=== PATIENT | female | born 1995 | race Caucasian/White ===

== ENCOUNTER 2020-05-20 22:52 | Emergency (ER) | payer OTHER, SELFPAY ==
[2020-05-20 23:08] VITALS: BP 163/97; PULSE 96; RESP 20; TEMP 37.3; O2SAT 98
--- NOTE | 2020-05-20 23:12 | ED.WOUNDLAC ---
HPI - Wound/Laceration General Chief Complaint: Wound/Laceration Stated Complaint: possible bit by spider on stomach Time Seen by Provider: 05/20/20 23:12 Source: patient Mode of arrival: ambulatory Limitations: no limitations History of Present Illness HPI narrative: 25-year-old woman was previously well comes in today complaining of a painful lesion on her left abdomen that has been present for last 2 days. She states this started as a pimple and she tried to squeeze it. Since then it has become red and more painful. She denies any fever, nausea, vomiting, and . Onset (ago): day(s) (2) Location: abdomen Related Data Allergies Allergy/AdvReac Type Severity Reaction Status Date / Time LAVENDER Allergy Uncoded 04/01/19 10:25 Review of Systems Constitutional: Constitutional: Denies chills and Denies fever(s) Respiratory: Respiratory: Denies cough and Denies dyspnea Gastrointestinal: Gastrointestinal: Denies abdominal pain, Denies nausea and Denies vomiting Genitourinary: Genitourinary: Denies nocturia and Denies dysuria Neurologic: Denies vertigo and Denies syncope Hematologic/Lymphatic: Hematologic/Lymphatic: Denies easy bleeding and Denies easy bruising Allergic/Immunologic: Allergic/Immunologic: Denies lip swelling and Denies throat swelling [facility] Surgical History Surgical History History of mandibular surgery Hx of tonsillectomy Social History Social History Smoking status: Never smoker Alcohol intake: never Substance use: never Living arrangements: with family Exam Const: General: no acute distress Nutritional Appearance: obese Orientation/consciousness: patient oriented x3 Limitations: no limitations Eyes: Conjunctivae: conjunctivae normal Pupils: Equal, round and reactive pupils present EOM: EOMs intact bilaterally Resp: Effort & Inspection: normal respiratory effort and not labored Auscultation: clear to auscultation bilaterally, no rales, no rhonchi and no wheezes Cardio: Rate: regular rate Rhythm: regular rhythm Heart sounds: no murmurs GI: GI Palp: Yes Soft to palpation and No Tenderness to palpation present (GI) Auscultation: normal bowel sounds Skin: General skin exam: normal color, no jaundice and no pallor Rashes: no rashes Other: 1.5 x 2 cm area of erythema and induration on the left abdomen with a small punctum. There is erythema around it but no purulent drainage or fluctuance. Neuro: General: patient oriented x3, moves all extremities, no focal motor deficits and CN's II-XI intact bilaterally Speech: normal speech Gait exam (Neuro): Normal gait present Extrem: General: normal to inspection and no clubbing, cyanosis or edema Psych: Appearance: grossly normal and well kempt Mental Status: mental status grossly normal Affect: normal affect Attitude: cooperative Thought content: Yes Normal thought content present Course Vital Signs Vital signs: Vital Signs Temperature 37.3 C 05/20/20 23:08 Pulse Rate 96 05/20/20 23:08 Respiratory Rate 20 05/20/20 23:08 Blood Pressure 163/97 H 05/20/20 23:08 Pulse Oximetry 98 05/20/20 23:08 Temperature 37.3 C 05/20/20 23:08 Pulse Rate 96 05/20/20 23:08 Respiratory Rate 20 05/20/20 23:08 Blood Pressure 163/97 H 05/20/20 23:08 Pulse Oximetry 98 05/20/20 23:08 Discharge Plan Discharge Clinical Impression: Abscess Patient Disposition: Home, Self-Care Condition: Stable Instructions: Antibiotic Form, Abscess (ED) Additional Instructions: Do not squeeze or poke the wound in order to make it drain. Warm compresses. If he develops fever, vomiting, or rapidly spreading redness or new concerning symptoms return to the emergency department. Follow-up with your doctor next week. Prescriptions: New sulfamethoxazole-trimethoprim [Bactrim DS] 800-160 m
[2020-05-20 23:24] VITALS: BP 141/90; PULSE 100; RESP 20; O2SAT 98
== END 2020-05-20 23:30 | disposition home or self-care (01) ==
PROVIDERS: Emergency Provider Emergency Medicine; PCP Internal Medicine
DX: L02.211 Cutaneous abscess of abdominal wall (principal)
CPT/HCPCS: 99283; A9270

== ENCOUNTER 2021-11-29 14:38 | Emergency (ER) | payer OTHER, SELFPAY ==
[2021-11-29 14:45] VITALS: BP 137/76; PULSE 94; RESP 14; TEMP 36.6; O2SAT 100
--- NOTE | 2021-11-29 15:04 | ED.SKABFB ---
HPI - Skin/Abscess/Foreign Bdy General Chief complaint: Skin/Abscess/Foreign Body Stated complaint: rash on neck, chest - itchy and painful Time Seen by Provider: 11/29/21 14:42 Source: patient and RN notes reviewed Mode of arrival: ambulatory Limitations: no limitations History of Present Illness MD complaint: rash (mild urticarial rash around both breasts. no acute pustules or marked excoriations.) Onset (ago): day(s) (2) Tetanus up to date: unsure Location: chest Severity: mild Severity scale (1-10): 2 Quality: pruritic Relieving factors: none Exacerbating factors: none Associated symptoms: denies other symptoms Treatments prior to arrival: none Related Data Allergies Allergy/AdvReac Type Severity Reaction Status Date / Time LAVENDER Allergy Unknown Uncoded 11/29/21 14:51 Review of Systems Review of Systems: All systems reviewed & are unremarkable except as noted in HPI and below Constitutional: Constitutional: Reports no additional constitutional complaints Eyes: Eyes: Reports no additional eye complaints ENT: Reports system reviewed and no additional complaints, except as documented Cardiovascular: Cardiovascular: Reports no additional cardiovascular complaints Respiratory: Respiratory: Reports no additional respiratory complaints Gastrointestinal: Gastrointestinal: Reports no additional gastrointestinal complaints Genitourinary: Genitourinary: Reports no additional female genitourinary complaints Musculoskeletal: Musculoskeletal: Reports no additional musculoskeletal complaints Integumentary/Breasts: Skin/Breast: Reports pruritus, Reports erythema and Reports rash Neurologic: Reports system reviewed and no additional complaints, except as documented Psychiatric: Psychiatric: Reports no additional psychiatric complaints Endocrine: Endocrine: Reports no additional endocrine complaints Hematologic/Lymphatic: Hematologic/Lymphatic: Reports no additional hematologic/lymphatic complaints Allergic/Immunologic: Allergic/Immunologic: Reports no additional allergic/immunologic complaints PMFSH Past Medical History Medical History Allergic rash present on examination Surgical History Surgical History History of mandibular surgery Hx of tonsillectomy Social History Social History Smoking status: Never smoker Alcohol intake: never Substance use: never Exam Const: General: healthy appearing and no acute distress Nutritional Appearance: well nourished Orientation/consciousness: patient oriented x3 Limitations: no limitations HENMT: Head: normal to inspection Ears: external ears normal, TM's normal bilaterally and EAC's normal General nose exam: Normal external nose present and Normal nares present Face and sinus: normal facial exam and sinuses nontender Mouth: Yes Normal oral and palatal mucosa present and Yes moist mucous membranes Teeth and gingiva: dentition normal Throat: posterior oropharynx normal Eyes: Conjunctivae: conjunctivae normal Pupils: Equal, round and reactive pupils present EOM: EOMs intact bilaterally Neck: Neck: normal visual inspection, no lymphadenopathy and no meningeal signs Chest: Chest palpation & inspection: normal inspection of the chest Resp: Effort & Inspection: normal respiratory effort Auscultation: clear to auscultation bilaterally Cardio: Rate: regular rate Rhythm: regular rhythm GI: GI Palp: Yes Soft to palpation and No Tenderness to palpation present (GI) Auscultation: normal bowel sounds : General: Yes bladder normal to palpation and Yes no CVA tenderness Bimanual exam- vagina & uterus: bladder normal to palpation Back/Spine/Pelvis: Back: no CVA tenderness Skin: General skin exam: normal color Rashes: no rashes (erythematous urticarial rash of both breasts with no acute pus
[2021-11-29] MEDS: diphenhydrAMINE HCl CAP 25 MG CAPSULE 50 MG PO (15:16)
[2021-11-29] MEDS: methylPREDNISolone SOD SUCC 125 MG VIAL IM (15:17)
[2021-11-29 15:45] VITALS: BP 130/64; PULSE 88; RESP 14; O2SAT 98
== END 2021-11-29 15:45 | disposition home or self-care (01) ==
PROVIDERS: Emergency Provider Emergency Medicine; PCP Family Medicine
DX: L50.9 Urticaria, unspecified (principal); R21 Rash and other nonspecific skin eruption
CPT/HCPCS: 96372; 99283; A9270; J2930

== ENCOUNTER 2022-06-07 15:16 | Emergency (ER) | payer OTHER, SELFPAY ==
[2022-06-07 15:38] VITALS: BP 155/82; PULSE 98; RESP 18; TEMP 36.6; O2SAT 98
--- NOTE | 2022-06-07 16:02 | ED.DENTAL ---
HPI - Dental/Oral General Chief complaint: Dental/Oral Stated complaint: broken tooth Time Seen by Provider: 06/07/22 15:27 Source: patient Mode of arrival: ambulatory Limitations: no limitations History of Present Illness HPI Narrative: patient presents with dental pain and which she describes as a fractured tooth in the left lower molar area with surrounding gum inflammation is currently 32 weeks , has tried [id number] Tylenol with minimal relief there is no fever chills no nausea vomiting no shortness of. Complaint: tooth pain Onset (ago): week(s) Duration: constant Severity: moderate Severity scale (1-10): 6 Relieving factors: nothing Exacerbating factors: chewing and cold Context: history of dental caries Associated symptoms: gum swelling Related Data Home Medications Medication Instructions Recorded Confirmed aspirin 81 mg tablet,delayed 81 mg PO DAILY 06/07/22 06/07/22 release vitamin with calcium 1 tablet PO DAILY 06/07/22 06/07/22 no.72-iron 27 mg-folic acid 1 mg tablet (M- Plus) Allergies Allergy/AdvReac Type Severity Reaction Status Date / Time LAVENDER Allergy Unknown Uncoded 06/07/22 16:01 Review of Systems Review of Systems: All systems reviewed & are unremarkable except as noted in HPI and below PMFSH Past Medical History Medical History Allergic rash present on examination Surgical History Surgical History History of mandibular surgery Hx of tonsillectomy Social History Social History Smoking status: Never smoker Alcohol intake: never Substance use: never Living arrangements: with family Exam Const: General: healthy appearing and no acute distress Orientation/consciousness: patient oriented x3 Limitations: no limitations HENMT: Head: normal to inspection Ears: external ears normal Face/Nose/Sinus: Normal external nose present Face and sinus: normal facial exam Mouth: Yes Normal oral and palatal mucosa present Eyes: Conjunctivae: conjunctivae normal Direct Ophthalmoscopy: no photophobia Neck: Neck: normal visual inspection Chest: Chest palpation & inspection: normal inspection of the chest Resp: Effort & Inspection: normal respiratory effort Auscultation: clear to auscultation bilaterally Cardio: Rate: regular rate Rhythm: regular rhythm GI: Auscultation: normal bowel sounds : General: Yes bladder normal to palpation Urinary Catheter: Urinary Catheter: patent and draining Back/Spine/Pelvis: Back: no CVA tenderness Skin: General skin exam: normal color Rashes: no rashes Wounds: no wounds Neuro: General: patient oriented x3 Cranial nerves: Yes Nystagmus not present Extrem: General: normal to inspection Psych: Mental Status: mental status grossly normal Course Course Emergency Course: Offered patient local injection patient declined, currently taking and 32 weeks advised to take Tylenol and will start advised her dentist. Vital Signs Vital signs: Vital Signs Temperature 36.6 C 06/07/22 15:38 Pulse Rate 98 06/07/22 15:38 Respiratory Rate 18 06/07/22 15:38 Blood Pressure 155/82 H 06/07/22 15:38 Pulse Oximetry 98 06/07/22 15:38 Oxygen Delivery Room Air 06/07/22 15:38 Temperature 36.6 C 06/07/22 15:38 Pulse Rate 98 06/07/22 15:38 Respiratory Rate 18 06/07/22 15:38 Blood Pressure 155/82 H 06/07/22 15:38 Pulse Oximetry 98 06/07/22 15:38 Oxygen Delivery Room Air 06/07/22 15:38 Critical Care Time Critical Care Time Critical Care Time: No Discharge Plan Discharge Clinical Impression: Toothache, Dental abscess Fracture of tooth Qualifiers: Encounter type: initial encounter Fracture type: closed Qualified Code(s): S02.5XXA - Fracture of tooth (traumatic), initial encounter for closed
--- NOTE | 2022-06-07 16:06 | PC.NURSE ---
On 06/07/22, the student, [brendan johnson ], provided care and completed [facility] documentation on this patient. I have reviewed the student's documentation and agree with the findings.
[2022-06-07 16:14] VITALS: BP 153/93; PULSE 95; RESP 20; TEMP 36.7; O2SAT 97
== END 2022-06-07 16:15 | disposition home or self-care (01) ==
PROVIDERS: Emergency Provider Emergency Medicine; PCP Family Medicine
DX: O26.893 Other specified pregnancy related conditions, third trimester (principal); S02.5XXA Fracture of tooth (traumatic), initial encounter for closed fracture; Z79.82 Long term (current) use of aspirin; Z3A.32 32 weeks gestation of pregnancy; X58.XXXA Exposure to other specified factors, initial encounter
CPT/HCPCS: 99283

== ENCOUNTER 2023-12-19 09:52 | Outpatient (CLI) | payer OTHER, SELFPAY ==
[2023-12-19 10:40] LABS: Strep Group A RT-PCR NOT DETECTED (Negative)
[2023-12-19 10:48] LABS: SARS-CoV-2 RNA PCR Positive (Negative)
[2023-12-19 11:05] LABS: Influenza A QL RT-PCR Negative (Negative); Influenza B QL RT-PCR Negative (Negative)
== END 2023-12-19 09:53 | disposition home or self-care (01) ==
LOC: CHSLAB 09:54
PROVIDERS: PCP Family Medicine; Visit Provider Family Medicine
DX: U07.1 COVID-19 (principal); J06.9 Acute upper respiratory infection, unspecified
CPT/HCPCS: 87636; 87651

== ENCOUNTER 2024-02-19 08:59 | Outpatient (CLI) | payer OTHER, SELFPAY ==
--- NOTE | ~2024-02-19 | XR_ITS ---
XR knee RT 3V 02/19/2024 09:34 INDICATION: Right knee pain PROCEDURE: 3 views right knee COMPARISON: No prior studies for comparison. FINDINGS: Fracture, dislocation or subluxation is not identified. The soft tissues appear within norm al limits. No foreign bodies are identified. IMPRESSION: 1: NO ACUTE BONE OR JOINT ABNORMALITY IDENTIFIED. Reviewed, dictated and finalized at location B.
[2024-02-19 09:31] LABS: Basophils Absolute Auto 0.03 K/mm3 (0.00-0.10); Basophils Percent Auto 0.4 % (0.0-1.0); Eosinophils Absolute Auto 0.08 K/mm3 (0.02-0.50); Eosinophils Percent Auto 1.1 % (1.0-6.0); Hematocrit 39.8 % (35.0-49.0); Hemoglobin 14.1 g/dL (12.0-15.0); Immature Granulocyte Absolute 0.01 K/mm3 (0.00-0.00); Immature Granulocyte Percent A 0.1 % (0.0-0.0); Lymphocytes Percent Auto 13.5 % (18.0-42.0); Mean Corpuscular HGB Conc 35.4 g/dL (32-36); Mean Corpuscular Hemoglobin 33.6 pg (27.0-31.0); Mean Corpuscular Volume 94.8 fL (78.0-102.0); Mean Platelet Volume 11.1 fl (9.2-11.8); Monocytes Percent Auto 5.4 % (2.0-11.0); Neutrophils Absolute Auto 5.91 K/mm3 (1.70-7.20); Neutrophils Percent Auto 79.5 % (50.0-70.0); Platelet Count Result 240 K/mm3 (150-420); Red Cell Distribution Width 12.1 % (11.6-14.4); White Blood Count 7.4 K/mm3 (4.8-10.8)
[2024-02-19 10:01] LABS: Strep Group A RT-PCR NOT DETECTED (Negative)
[2024-02-19 10:08] LABS: Influenza A QL RT-PCR Negative (Negative); Influenza B QL RT-PCR Negative (Negative); SARS-CoV-2 RNA PCR Negative (Negative)
[2024-02-19 10:12] LABS: Rheumatoid Factor Screen Negative (Negative)
[2024-02-19 10:16] LABS: Alanine Aminotransferase 27 U/L (14-59); Albumin Level 3.9 g/dL (3.4-5.0); Alkaline Phosphatase 74 U/L (46-116); Anion Gap 13 mmol/L (4-12); Aspartate Amino Transferase 14 U/L (15-37); Bilirubin,Total 0.6 mg/dL (0.00-1.00); Blood Urea Nitrogen 5 mg/dL (7-18); CRP 5.4 mg/dL (0.0-0.9); Calcium 8.7 mg/dL (8.5-10.1); Carbon Dioxide 24 mmol/L (21-32); Chloride 101 mmol/L (98-108); Cholesterol 256 mg/dL (0-200); Estimated Glomerular Filt Rate > 60; Glucose 118 mg/dL (70-99); HDL Direct 45 mg/dL (40-60); LDL Cholesterol Calculated 173 mg/dL (<130); Osmolality Calculated 284 mOsm/kg (285-295); Sodium 138 mmol/L (136-145); Thyroid Stimulating Hormone 0.51 uIU/mL (0.36-3.74); Total Protein 7.1 g/dL (6.4-8.2); Triglycerides 192 mg/dL (0-150); Uric Acid 5.7 mg/dL (2.6-6.0)
[2024-02-19 10:37] LABS: Erythrocyte Sedimentation Rate 33 mm/hr (0-15)
[2024-02-19 17:37] LABS: Hemoglobin A1C 5.5 % (<5.7)
[2024-02-20 15:23] LABS: ANA Cascade Screen NEGATIVE (NEGATIVE)
== END 2024-02-19 09:00 | disposition home or self-care (01) ==
LOC: CHSLAB 09:01
PROVIDERS: PCP Family Medicine; Visit Provider Family Medicine
DX: M13.0 Polyarthritis, unspecified (principal); M25.561 Pain in right knee; R53.83 Other fatigue
CPT/HCPCS: 36415; 73562; 80053; 80061; 83036; 83516; 84443; 84550; 85025; 85652; 86038; 86140; 86225; 86235; 86430; 87636; 87651

== ENCOUNTER 2024-03-16 14:16 | Outpatient (CLI) | payer OTHER, SELFPAY ==
--- NOTE | ~2024-03-16 | XR_ITS ---
EXAMINATION: XR hand LT min 3V DATE: 03/16/2024 15:18 INDICATION: Pain in unspecified hand. TECHNIQUE: 3 views of left hand were obtained. COMPARISON: None. FINDINGS: Alignment is normal. No fracture. Joint spaces are normal. IMPRESSION: 1. Normal left hand. Reviewed, dictated and finalized at location A. LE PARAMEDICAL EXAMINER IMPRESSION: 1. Normal left hand.
--- NOTE | ~2024-03-16 | XR_ITS ---
EXAMINATION: XR hand RT min 3V DATE: 03/16/2024 15:19 INDICATION: Pain in unspecified hand. TECHNIQUE: 3 views of right hand were obtained. COMPARISON: None. FINDINGS: Alignment is normal. No fracture. Joint spaces are normal. IMPRESSION: 1. Normal right hand. Reviewed, dictated and finalized at location A. E CRUISE IMPRESSION: 1. Normal right hand.
[2024-03-16 15:21] LABS: Add Urine Microscopic? NO; Appearance Urine Clear (Clear); Bilirubin Urine Negative (Negative); Blood Urine Negative (Negative); Color Urine Light Yellow (Yellow); Glucose Urine UA Negative (Negative); Ketones Urine Negative (Negative); Leukocyte Esterase Ur Negative (Negative); Nitrate Urine Negative (Negative); Protein Urine Negative (Negative); Specific Grav Ur 1.025 (1.010-1.020); Urobilinogen Urine 0.2 mg/dL (0.2-1.0)
[2024-03-16 16:53] LABS: Folic Acid 5.3 ng/mL (8.6->20); Vitamin B12 204 pg/mL (193-986)
[2024-03-18 04:38] LABS: Vitamin D 25 Hydroxy 10 ng/mL (30-100)
== END 2024-03-16 14:17 | disposition home or self-care (01) ==
PROVIDERS: PCP Family Medicine; Visit Provider Family Medicine
DX: R53.83 Other fatigue (principal); M79.643 Pain in unspecified hand
CPT/HCPCS: 36415; 73130; 81003; 82306; 82607; 82746; 83921

== ENCOUNTER 2024-07-31 13:54 | Emergency (ER) | payer OTHER, SELFPAY ==
--- NOTE | ~2024-07-31 | XR_ITS ---
XR foot RT min 3V 07/31/2024 14:08 INDICATION: Right foot pain after fall PROCEDURE: 3 views right foot COMPARISON: No prior studies for comparison. FINDINGS: There is a nondisplaced fracture proximal aspect of the fifth metatarsal. Mild soft tissue swelling. Lisfranc joint intact. No other fracture identified. No foreign bodies.. IMPRESSION: 1: Nondisplaced transverse fracture proximal aspect of the fifth metatarsal. Reviewed, dictated and finalized at location A.
[2024-07-31 13:54] VITALS: BP 147/97; PULSE 85; RESP 16; TEMP 36.2; O2SAT 99
--- OUTSIDE RECORDS SUMMARY | 2024-07-31 13:57 | XMS_ITS | Encounter Summary ---
Author Organization [facility] Address [address] [place] [id number] Care Team Providers Care Apartment Leasing Specialist Name Role Phone Tito Saavedra MD Primary Care Provider [phone] Encounter Details Date Type Department Care Team (Late st Contact Info) Description 10/05/[address] [facility] [address] [facility] [place] [address] Esme Cantor, RN Social History Tobacco Use Types Packs/Day Years Used Date Smoking Tobacco: Never Smokeless Tobacco: Never Alcohol Use Standard Drinks/Week Comments Not Currently 0 (1 standard drink = 0.6 oz pur e alcohol) Humiliation, Afraid, Rape, and Kick questionnair e Answer Date Recorded Within the last year, have y ou been afraid of your partner or ex-partner? No 08/13/2022 Within the last year, have y ou been humiliated or emotionally abused in other ways by your partner or ex-partner? No Within the last year, have y ou been kicked, hit, slapped, or otherwise physically hurt by your partner or ex-partner? No 08/13/2022 Within the last year, have y ou been raped or forced to have any kind of sexual activity by your partner or ex-partner? No 08/13/2022 Social Connection and Isolat ion Panel [NHANES] Answer Date Recorded In a typical week, how many times do you talk on the phone with family, friends, or neighbors? More than three times a week 08/13/2022 How often do you get togethe r with friends or relatives? More than three times a week 08/13/2022 How often do you attend [facility] or sabianism services? Never 08/13/2022 Do you belong to any clubs o r organizations such as shinto groups, unions, fraternal or athletic groups, or school groups? No 08/13/2022 How often do you attend meet ings of the clubs or organizations you belong to? Never 08/13/2022 Are you , , di vorced, , never , or living with a partner? Living with partner 08/13/2022 AUDIT-C Answer Date Recorded Q1: How often do you have a drink containing alcohol? Never 08/13/2022 Q2: How many drinks containi ng alcohol do you have on a typical day when you are drinking? Patient does not drink Q3: How often do you have si x or more drinks on one occasion? Never 08/13/2022 Overall Financial Resource Strain (CARDIA) Answe r Date Recorded How hard is it for you to pa y for the very basics like food, housing, medical care, and heating? Not hard at all 08/13/2022 [facility] - Occupational Stress Questionnaire Answer Date Recorded Do you feel stress - tense, restless, nervous, or anxious, or unable to sleep at night because your mind is troubled all the time - these days? Not at all 08/13/2022 Exercise Vital Sign Answer Date Recorde d On average, how many days pe r week do you engage in moderate to strenuous exercise (like a brisk walk)? 0 days 08/13/2022 On average, how many minutes do you engage in exercise at this level? 0 min 08/13/2022 Hunger Vital Sign Answer Date Recorded Within the past 12 months, y ou worried that your food would run out before you got the money to buy more. Never true 08/14/19 23 Within the past 12 months, t he food you bought just didn't last and you didn't have money to get more. Never true 08/13/2022 PRAPARE - Transportation Answer Date Re corded In the past 12 months, has l ack of transportation kept you from medical appointments or from getting medications? No 07/28 In the past 12 months, has l ack of transportation kept you from meetings, work, or from getting things needed for daily living? No 08/13/2022 Housing Stability Vital Sign Answer Miguelito e Recorded In the last 12 months, was t here a time when you were not able to pay the mortgage or rent on time? No 08/13/2022 In the last 12 months, how many places have you lived? 1 08/13/2022 In the last 12 months, was t here a time when you did not have a steady place to sleep or slept in a [facility] (including now)? 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 Answer Date of Assessment Author Status No 08/13/2022 3:58 AM CDT Fatou Ortiz, R N Active * Do you have serious difficulty walking or climbing stairs? Answer Date of Assessment Author Status No 08/13/2022 3:58 AM CDT Fatou Ortiz, R N Active * Do you have difficulty dressing or bathing? Answer Date of Assessment Author Status No 08/13/2022 3:58 AM CDT Fatou Ortiz L, R N Active * Because of a physical, mental, or emotional condition, do you have difficulty doing errands alone such as visiting a doctor's office or shopping? Answer Date of Assessment Author Status No 08/13/2022 3:58 AM CDT Fatou Ortiz L, R N Active documented as of this encounter Mental Status * Because of a physical, mental, or emotional condition, do you have serious difficulty concentrating, remembering, or making decisions? Answer Entry Date Author Status No 08/13/2022 3:58 AM CDT Fatou Ortiz, R N Active documented in this encounter Progress Notes * Esme Cantor RN - 10/05/2022 12:51 AM CDT Phone call to pt to check in on . Message left for pt. documented in this encounter Plan of Treatment Not on file documented as of this encounter Visit Diagnoses Not on filedocumented in this encounter Additional Health Concerns Infection Onset Date Last Indicated Resolved Time ESBL - Extended Spectrum Beta-lactamase 08/20/2022 0 08/20/2022 documented as of this encounter Care Teams Apartment Leasing Specialist Relationship Specialty Start Date End Date Tito Saavedra MD [address] [place] [address] PCP - General FAMILY PRACTICE 12/28/21 documented as of this encounter
--- OUTSIDE RECORDS SUMMARY | 2024-07-31 13:57 | XMS_ITS | Clinical Summary ---
Author Organization [facility] Address [address] [place] [address] Care Team Providers Care Cooling Pipe Inspector Name Role Phone Tito Saavedra MD Primary Care Provider Allergies No known active allergies Medications labetalol (NORMODYNE) 200 MG tablet Take 2 tablets (400 mg total) by mouth 3 (three) times daily. Also dispense hctz 90 tablet 1 08/20/2022 Active hydroCHLOROthia zide (HYDRODIURIL) 25 MG tablet Take 1 tablet (25 mg total) by mouth every morning. 30 tablet 1 08/20/2022 Active Active Problems Problem Noted Date Diagnosed Date hypertension ([facility]/HCC) 08/19/2022 fever, current hospitalization ([facility]/H CC) 08/18/2022 Labor and delivery, indication for care ([facility] ) 08/13/2022 Family History Medical History Relation Comments Heart Father Heart Mother Relation Status Comments Father Mother Social History Tobacco Use Types Packs/Day Years Used Date Smoking Tobacco: Never Smokeless Tobacco: Never Tobacco Cessation:Counseling Given: Not Answered Alcohol Use Standard Drinks/Week Comments Not Currently [...] week 08/13/2022 How often do you attend chur or religion services? Never 08/13/2022 Do you belong to any clubs o r organizations such as moravian groups, unions, fraternal or athletic groups, or [...] and heating? Not hard at all 08/13/2022 [facility] - Occupational Stress [...] place to sleep or slept in a half-way (including now)? 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 Gender Identity Female 08/13/2022 3:51 AM CDT Sexual Orientation Straight 08/13/2022 3: 51 AM CDT Last Filed Vital Signs Vital Sign Reading Time Taken Comments Blood Pressure 147/92 08/20/2022 7:46 PM CDT Pulse 74 08/20/2022 7:46 PM CDT Temperature 36.8 C (98.2 F) 08/20/2022 7:46 PM CDT Respiratory Rate 14 08/20/2022 7:46 PM CDT Oxygen Saturation 97% 08/20/2022 7:46 PM CDT Inhaled Oxygen Concentration - - Weight 131.5 kg (290 lb) 08/18/2022 7:23 PM CDT Height 177.8 cm (5' 10 ) 08/18/2022 7:23 PM CDT Body Mass Index 41.61 08/18/2022 7:23 PM CDT Plan of Treatment Health Maintenance Due Date Last Done Comments Cervical Cancer Screening Pap Smear (Age 21 to 29) Every 3 Years 1995 Cervical Cancer Screening 1995 Hepatitis B Vaccines (4 of 4 - 4-dose series) 1995 1995, 1995, 1995 Annual Physical 1998 Hepatitis C 2013 DTaP, Tdap and Td Vaccines (2 - Tdap) 2014 07/01/1998, 1995, 1995, Additional history exists COVID-19 Vaccine ( season) 2023 HPV Vaccines Aged Out No longer eligi ble based on patient's age to complete this topic Meningococcal B Vaccine Aged Out No l onger eligible based on patient's age to complete this topic Meningococcal Vaccine Aged Out No junaid victor hugo eligible based on patient's age to complete this topic Pneumococcal Vaccine: Pediatrics (0 to 5 Years) and At-Risk Patients (6 to 64 Years) Aged Out No longer eligible based on patient's age to complete this topic RSV Immunizations Under 20 Months Aged Out No longer eligible based on patient's age to complete this topic Additional Health Concerns Infection Onset Date Last Indicated ESBL - Extended Spectrum Beta-lactamase 08/21/19 23 08/20/2022 Insurance [facility] Advance Directives * Full Code (Latest Code Status on File) Date Activated Date Inactivated Comments 08/13/2022 3:25 AM 08/13/2022 5:03 PM Care Teams Cooling Pipe Inspector Relationship Specialty Start Date End Date Tito Saavedra MD [address] [place] [address] PCP - General FAMILY PRACTICE 12/28/21
--- OUTSIDE RECORDS SUMMARY | 2024-07-31 13:57 | XMS_ITS | Encounter Summary ---
Author Organization 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 Gender Identity Female 08/13/2022 3:51 AM CDT Sexual Orientation Straight 08/13/2022 3: 51 AM CDT documented as of this encounter Plan of Treatment Not on file documented as of this encounter Visit Diagnoses Not on filedocumented in this encounter Additional Health Concerns Infection Onset Date Last Indicated Resolved Time ESBL - Extended Spectrum Beta-lactamase 08/20/2022 0 08/20/2022 documented as of this encounter Care Teams Plate Drying Machine Tender Relationship Specialty Start Date End Date Tito Saavedra MD [address] [place] [id number] PCP - General FAMILY PRACTICE 12/28/21 documented as of this encounter
--- NOTE | 2024-07-31 14:00 | ED.LOWEXIN ---
HPI - Extremity Injury (Lower) General Chief Complaint: Extremity Injury, Lower Stated Complaint: foot pain Time Seen by Provider: 07/31/24 13:59 Source: patient Mode of arrival: ambulatory Limitations: no limitations History of Present Illness HPI Narrative: patient is a 29-year-old female with a right foot injury while walking down her stairs at home outside. She had an injury to the lateral aspect of the right foot. No other injuries. No head or neck injuries. MD complaint: foot injury ( Right) Onset (ago): hour(s) ( 1) Type of Injury: inversion Place: home and street/outdoors Severity: moderate Severity scale (1-10): 4 Relieving factors: immobilization Exacerbating factors: weight bearing, movement and palpation Context: fall and walking Associated symptoms: snap/pop sensation, swelling and able to partially bear weight Other symptoms: none Treatments prior to arrival: other ( none) Related Data Home Medications ?Medication ?Instructions ?Recorded ?Confirmed ?Last Taken ?Type aspirin 81 mg tablet,delayed 81 mg PO DAILY 06/07/22 06/07/22 Unknown History release vitamin with calcium 1 tablet PO DAILY 06/07/22 06/07/22 Unknown History no.72-iron 27 mg-folic acid 1 mg tablet (M-German Plus) Allergies Allergy/AdvReac Type Severity Reaction Status Date / Time LAVENDER Allergy Unknown Uncoded 06/07/22 16:01 Review of Systems Review of Systems: All systems reviewed & are unremarkable except as noted in HPI and below Constitutional: Constitutional: Reports no additional constitutional complaints Eyes: Eyes: Reports no additional eye complaints ENT: Reports system reviewed and no additional complaints, except as documented Cardiovascular: Cardiovascular: Reports no additional cardiovascular complaints Respiratory: Respiratory: Reports no additional respiratory complaints Gastrointestinal: Gastrointestinal: Reports no additional gastrointestinal complaints Genitourinary: Genitourinary: Reports no additional female genitourinary complaints Musculoskeletal: Musculoskeletal: Reports no additional musculoskeletal complaints Integumentary/Breasts: Skin/Breast: Reports system reviewed and no additional complaints, except as docu Neurologic: Reports system reviewed and no additional complaints, except as documented Psychiatric: Psychiatric: Reports no additional psychiatric complaints Endocrine: Endocrine: Reports no additional endocrine complaints Hematologic/Lymphatic: Hematologic/Lymphatic: Reports no additional hematologic/lymphatic complaints Allergic/Immunologic: Allergic/Immunologic: Reports no additional allergic/immunologic complaints [facility] Past Medical History Medical History Allergic rash present on examination Surgical History Surgical History Hx of tonsillectomy History of mandibular surgery Social History Social History Smoking status: Never smoker Alcohol intake: never Substance use: never Living arrangements: with family Exam Const: General: healthy appearing Nutritional Appearance: well nourished Orientation/consciousness: patient oriented x3 HENMT: Head: normal to inspection Ears: external ears normal Face/Nose/Sinus: Normal external nose present Eyes: Conjunctivae: conjunctivae normal Pupils: Equal, round and reactive pupils present EOM: EOMs intact bilaterally Neck: Neck: normal visual inspection Chest: Chest palpation & inspection: normal inspection of the chest Resp: Effort & Inspection: normal respiratory effort and not labored Auscultation: clear to auscultation bilaterally and no crackles Cardio: Rate: regular rate Rhythm: regular rhythm Heart sounds: no murmurs GI: Inspection: non-distended GI Palp: Yes Soft to palpation and No Tenderness to palpation present (GI) Auscultation: normal bowel sounds : General: Yes bladder normal to palpation Back/Spine/Pelvis: Back: no CVA tenderness Skin: General skin exam: normal color Rashes: no rashes Wounds: no wounds Neuro: General: patient oriented x3 Cranial nerves: Yes Nystagmus not present Speech: normal speech Extrem: General: abnormal to inspection Other: right foot lateral aspect mid foot to proximal foot has a swelling and slight ecchymosis with tenderness to palpation hematoma area Psych: Mental Status: mental status grossly normal Affect: normal affect Attitude: cooperative Course Vital Signs Vital signs: Vital Signs Temperature 36.2 C L 07/31/24 13:54 Pulse Rate 85 07/31/24 13:54 Respiratory Rate 16 07/31/24 13:54 Blood Pressure 147/97 H 07/31/24 13:54 Pulse Oximetry 99 07/31/24 13:54 Oxygen Delivery Room Air 07/31/24 13:54 Temperature 36.2 C L 07/31/24 13:54 Pulse Rate 85 07/31/24 13:54 Respiratory Rate 16 07/31/24 13:54 Blood Pressure 147/97 H 07/31/24 13:54 Pulse Oximetry 99 07/31/24 13:54 Oxygen Delivery Room Air 07/31/24 13:54 MDM - Extremity Injury (Lower) MDM Narrative Medical decision making narrative: patient is a 29-year-old female with a right foot injury prior to arrival. We will go ahead and get an x-ray. Did not want pain management at this time. Imaging Data Attestation: I personally reviewed and interpreted this imaging study as follows: Radiologist's impression: X-ray right foot shows IMPRESSION: 1: Nondisplaced transverse fracture proximal aspect of the fifth metatarsal. Discharge Plan Discharge Clinical Impression: Foot fracture, right Qualifiers: Encounter type: initial encounter Fracture type: closed Qualified Code(s): S92.901A - Unspecified fracture of right foot, initial encounter for closed fracture Patient Disposition: Home, Self-Care Condition: Stable Instructions: Foot Fracture in Adults (ED) Additional Instructions: Please follow-up with the primary doctor in the next week. Please follow-up with an orthopedic surgeon to monitor and further plan for the right foot fracture. Wear the Ricky and postop shoe until you see the orthopedic surgeon. Patient Language: Greenlandic Prescriptions: No Action aspirin [Aspir-81] 81 mg Tablet,Delayed Release (Dr/Ec) 81 mg PO DAILY M- Plus 27 mg iron- 1 mg tablet 1 tablet PO DAILY amoxicillin 500 mg capsule 500 mg PO TID Qty: 30 0RF Follow-up/Referrals: Javon Samson MD [Primary Care Provider] - Time of Disposition: 14:39
[2024-07-31 14:53] VITALS: BP 147/97; PULSE 85; RESP 16; TEMP 36.2; O2SAT 99
== END 2024-07-31 14:53 | disposition home or self-care (01) ==
PROVIDERS: Emergency Provider Emergency Medicine; PCP Family Medicine
DX: S92.901A Unspecified fracture of right foot, initial encounter for closed fracture (principal); X50.0XXA Overexertion from strenuous movement or load, initial encounter; Y92.009 Unspecified place in unspecified non-institutional (private) residence as the place of occurrence of the external cause
CPT/HCPCS: 73630; 99284